=== PATIENT | male | born 2000 | race Caucasian/White ===

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

== ENCOUNTER 2020-11-10 10:39 | Emergency (ER) | payer MEDICAID, SELFPAY ==
[2020-11-10 10:40] VITALS: BP 140/71; PULSE 106; RESP 16; TEMP 36.8; O2SAT 93; BMI 27.3
--- NOTE | 2020-11-10 10:47 | EDS_ITS ---
HPI History of Present Illness Chief Complaint: Upper Extremity Injury Informant: patient and family Onset/Context/Timing Onset: Days (3 days) Context: Gradual Onset Timing: Waxes and wanes Quality of Pain: Aching and - (Popping) Current Severity: Mild Maximum Severity: Moderate Narrative Narrative: Patient presents secondary to left hand and thumb pain. He states he noted a popping sensation at the base of his left thumb 3 days ago. He has occasional paresthesias up the side of his index finger and his thumb. He states pain is starting to radiate up his wrist and forearm. He denies any specific injury but states he has had multiple broken bones in his hand in the past. [facility] Medical History (Updated 11/10/20 @ 10:[address] Shayla Skaggs MD) Migraine Home Medications amitriptyline 50 mg PO DAILY 04/01/18 [History Last Taken Unknown] ibuprofen [Ibu] 800 mg PO DAILY PRN 04/01/18 [History Last Taken Unknown] Allergy/AdvReac Type Severity Reaction Status Date / Time No Known Allergies Allergy Verified 11/10/20 10:41 Social History Smoking Status: Never smoker ROS ROS ED Constitutional Constitutional ED: Denies chills or fever(s) Eyes Eyes: Denies change in vision ENT ENT ED: Denies sore throat Cardiovascular Cardiovascular: Denies chest pain Respiratory/Chest Respiratory/Chest: Denies cough or dyspnea Gastrointestinal Gastrointestinal: Denies abdominal pain, diarrhea, nausea or vomiting Genitourinary Genitourinary ED: Denies dysuria Musculoskeletal Musculoskeletal: Reports other Details: Left hand pain ; Denies back pain Integumentary Denies rash Neurologic Neurologic: Denies headache(s) or weakness Psychiatric Psychiatric: Denies anxiety or depression Endocrine Endocrinology: Denies polydipsia or polyuria Allergic/Immunologic Allergic/Immunologic ED: Denies urticaria EXAM Physical Exam Const Vital Signs: 11/10/20 10:40 Temperature 98.3 F Temperature Source Temporal Pulse Rate 106 H Respiratory Rate 16 Blood Pressure 140/71 H Blood Pressure Mean 94 Pulse Ox 93 Oxygen Delivery Method Room Air Positive well nourished and well developed General Appearance ED: well developed HEENT Reports normocephalic and head/scalp atraumatic Eyes PERRL and EOMs intact bilaterally Neck supple Chest Wall inspection of chest normal and palpation of chest normal Resp normal respiratory effort and clear to auscultation bilaterally Cardio regular rate and regular rhythm GI normal to inspection, nondistended, normoactive bowel sounds Palpation: soft Extremity normal to inspection Extremity Narrative: Mild tenderness location of the base of the left thumb. No joint edema or erythema. No laxity noted on testing. Strong pulses, normal sensation, normal cap refill. Neuro oriented x3 and no sensory deficits noted Sensorium / Orientation: alert Motor Exam: strength 5/5 throughout Psych mental status grossly normal Skin no rashes or lesions noted MDM MDM MDM Narrative Medical decision making narrative: Left hand x-rays were obtained. Per my interpretation no acute abnormalities noted. Treatment and Re-Evaluation Comments:: Patient replaced in a thumb spica splint. Advised to continue anti- inflammatories. He is referred to Dr. Davis, on-call for orthopedics if not improving. Discharge Plan Triage Chief Complaint: Upper Extremity Injury ED Provider: Shayla Skaggs Dx/Rx/DC Orders Clinical Impression: Left thumb sprain Instructions: ED Finger Sprain Prescriptions: No Action ibuprofen [IBU] 800 tablet 800 mg PO DAILY PRN (Reason: Pain) RF: 0 amitriptyline 50 MG tablet 50 mg PO DAILY RF: 0 Primary Care Provider: Val Nye Referrals: Ricky Davis DO [STAFF PHYSICIAN] - As Needed Val Nye DO [Primary Care Provider] - Disposition Disposition: Home, self care
--- NOTE | 2020-11-10 10:50 | RAD_ITS ---
STUDY: X-RAY - LEFT HAND REASON FOR EXAM: Male, 20 years old. Thumb keeps dislocating per patient, joint pain proximal and mid thumb TECHNIQUE: 3 view(s) of the hand. COMPARISON: None. FINDINGS: Normal radiocarpal articulation. Normal distal radioulnar joint. Normal visualized carpal bones. Normal carpal articulations Normal carpometacarpal articulation of the thumb. Normal second through fifth carpometacarpal joints. Normal metacarpi. Normal metacarpophalangeal joint of the thumb. Normal interphalangeal joint of the thumb. Normal proximal and distal phalanges of the thumb. Normal metacarpophalangeal joints of the second through fifth fingers. Normal proximal and distal interphalangeal joints of the second through fifth fingers. Normal phalanges of the second through fifth fingers. The soft tissue structures are unremarkable. RAD/Hand Min 3 Views IMPRESSION: Normal x-ray examination of the hand. Electronically Signed: Lucas Abel MD at 11:03 EDT , Service support ,
== END 2020-11-10 11:58 | disposition home or self-care (01) ==
PROVIDERS: Emergency Provider Emergency Medicine
DX: S63.602A Unspecified sprain of left thumb, initial encounter (principal); X58.XXXA Exposure to other specified factors, initial encounter; Y93.89 Activity, other specified; Y92.89 Other specified places as the place of occurrence of the external cause; Y99.8 Other external cause status
CPT/HCPCS: 73130; 99283

== ENCOUNTER 2020-11-26 07:40 | Emergency (ER) | payer MEDICAID, SELFPAY ==
[2020-11-26 07:41] VITALS: BP 128/83; PULSE 88; RESP 18; TEMP 36.4; O2SAT 96; BMI 26.5
--- NOTE | 2020-11-26 07:57 | EX.ED.DYSGE1 ---
HPI History of Present Illness Chief Complaint: Ear Problem Informant: patient Narrative Narrative: Patient is a 20-year-old male with history of chronic migraines presenting with foreign body in his left ear. Patient states he puts wax in his ears at night. A he was not able to get the wax out this morning. He tried to get it out with tweezers but was unsuccessful so he came to the emergency room. Denies any other complaints at this time. He denies any associated pain. PFSH PFS Medical History Migraine Home Medications amitriptyline 50 mg PO DAILY 04/01/18 [History Last Taken Unknown] ibuprofen [Ibu] 800 mg PO DAILY PRN 04/01/18 [History Last Taken Unknown] Allergy/AdvReac Type Severity Reaction Status Date / Time No Known Allergies Allergy Verified 11/26/20 07:43 Social History Smoking Status: Never smoker ROS ROS ED Constitutional Constitutional ED: Denies chills or fever(s) Eyes Eyes: Denies change in vision ENT ENT ED: Reports other Details: Foreign body left ear ; Denies ear pain Cardiovascular Cardiovascular: Denies chest pain Respiratory/Chest Respiratory/Chest: Denies dyspnea Gastrointestinal Gastrointestinal: Denies nausea Integumentary Denies rash Neurologic Neurologic: Denies headache(s) EXAM Physical Exam Const Vital Signs: 11/26/20 07:41 Temperature 97.5 F L Temperature Source Temporal Pulse Rate 88 Respiratory Rate 18 Blood Pressure 128/83 H Blood Pressure Mean 98 Pulse Ox 96 Oxygen Delivery Method Room Air Positive well nourished and well developed General Appearance ED: well developed HEENT HEENT Narrative: Normal right tympanic membrane. Normal external ears bilaterally. There is a blue foreign body visualized in the distal left ear canal. Normal ear canal that is visualized. I am not able to visualize the left tympanic membrane. Neck no lymphadenopathy and supple Resp normal respiratory effort Cardio regular rate Neuro oriented x3 Sensorium / Orientation: alert Psych mental status grossly normal Skin no rashes or lesions noted MDM MDM MDM Narrative Medical decision making narrative: Patient is evaluated for foreign body his left ear. I did attempt to remove it using alligator forceps but was unsuccessful given the consistency of the wax. Discussed with ENT, Dr. Schilling, who states he will see him in the office as he is old appropriate tools. Patient will be discharged with instructed to go to the office. Patient is counseled on signs and symptoms requiring return to the emergency room. Patient verbalizes agreement and understand this plan. Patient discharged home in stable and improved condition. Discharge Plan Triage Chief Complaint: Ear Problem ED Provider: Alyse Romeo Dx/Rx/DC Orders Clinical Impression: Acute foreign body of left ear Prescriptions: No Action ibuprofen [IBU] 800 tablet 800 mg PO DAILY PRN (Reason: Pain) RF: 0 amitriptyline 50 MG tablet 50 mg PO DAILY RF: 0 Primary Care Provider: Care Physician,No Primary Referrals: Adam Schilling MD [STAFF PHYSICIAN] - Care Physician,No Primary [Primary Care Provider] - Activity Restrictions/Additional Instructions: Please go to the ENT office, Dr. Schilling, for removal. Call the office and let them know that you were seen in the ER in were instructed to come over. Disposition Disposition: Home, self care
== END 2020-11-26 08:06 | disposition home or self-care (01) ==
PROVIDERS: Emergency Provider Emergency Medicine
DX: T16.2XXA Foreign body in left ear, initial encounter (principal)
CPT/HCPCS: 99281